=== PATIENT | male | born 1980 | race Two or more races ===

== ENCOUNTER 2017-12-28 10:53 | Emergency (ER) | payer MEDICAID ==
[~2017-12-28] VITALS: Ht 180.3 cm; Wt 59.7 kg
[2017-12-28 11:21] VITALS: BP 106/71
== END 2017-12-28 13:11 | disposition home or self-care (01) ==
LOC: ER 10:53
DX: J02.9 Acute pharyngitis, unspecified (principal); R59.0 Localized enlarged lymph nodes; R03.0 Elevated blood-pressure reading, without diagnosis of hypertension; F12.90 Cannabis use, unspecified, uncomplicated; Z98.890 Other specified postprocedural states
CPT/HCPCS: 87070; 87077; 87430; 99283; 99284

== ENCOUNTER 2021-06-04 08:55 | Emergency (ER) | payer MEDICAID, OTHER ==
[~2021-06-04] VITALS: Ht 180.3 cm; Wt 64.0 kg
[2021-06-04] MEDS ORDERED: AM250 PO (09:03)
[2021-06-04] MEDS ORDERED: IBUP-2028 PO (09:03)
[2021-06-04] MEDS ORDERED: ACETAMINOPHEN 325MG TABLET PO ONE (10:30)
[2021-06-04 12:08] VITALS: BP 117/85
[2021-06-04] MEDS ORDERED: ONDANSETRON 4MG ODT PO ONE (12:15)
[2021-06-04] MEDS ORDERED: ONDA4TAB5 MT (13:05)
[2021-06-04] MEDS ORDERED: TOPUD MT (13:05)
== END 2021-06-04 13:36 | disposition home or self-care (01) ==
LOC: ER 08:55
DX: J06.9 Acute upper respiratory infection, unspecified (principal); B34.9 Viral infection, unspecified; Z20.822 Contact with and (suspected) exposure to COVID-19
CPT/HCPCS: 87426; 87804; 99283; C9803; Q0162; U0003; U0005